=== PATIENT | male | born 1995 | race Caucasian/White ===

== ENCOUNTER 2018-10-31 01:18 | Emergency (ER) | payer OTHER ==
[2018-10-31] MEDS: HYDROCODONE/APAP (5/325) TAB PO (02:15)
[2018-10-31] MEDS: CEPHALEXIN 500 MG CAP PO (02:15)
[2018-10-31] MEDS: IBUPROFEN 600 MG TAB PO (02:15)
== END 2018-10-31 02:43 | disposition home or self-care (01) ==
LOC: FTE 02:43
DX: K08.89 Other specified disorders of teeth and supporting structures (principal)
CPT/HCPCS: 99283; Z7502